=== PATIENT | female | born 1995 | race Caucasian/White ===

== ENCOUNTER 2020-06-12 07:36 | Inpatient (IN) ==
[2020-06-12] MEDS ORDERED: OXYTOCIN 30 UNITS/500 ML BAG IV PRN ×2 (07:40)
[2020-06-12] MEDS: LACTATED RINGER'S 1,000 ML IV PRN ×4 (08:27→21:21)
[2020-06-12] MEDS ORDERED: ONDANSETRON INJ 2 MG/ML 2 ML VIAL IV PRN ×2 (12:21→16:24)
--- NOTE | 2020-06-12 14:04 | Obstetrical Progress Note ---
Date of Service June 12, 2020 Assessment & Plan Admission and Anticipated Discharge Date Admission Date: June 12, 2020 Subjective contractions starting to get uncomfortable but not painful. FHT's category 1 contractions every 3-5 minutes- mild cervix exam- 4cm/80/-2 AROM for thin mec stained fluid continue current labor plan Results & Data ([facility]) Vital Signs (Past 12 Hours) Vital Signs Temp Pulse Resp BP 06/12/20 13:42 98.2 F 94 H 20 142/86 H 06/12/20 12:26 93 H 124/72 06/12/20 11:20 98.4 F 20 06/12/20 11:19 93 H 131/80 06/12/20 10:20 96 H 130/85 06/12/20 08:51 100 H 126/73 06/12/20 08:30 98.2 F 20 06/12/20 07:58 98.2 F 107 H 20 125/81 PG Care Time/CCT Total # of Minutes Spent Total Time Spent with Patient: Total time spent is greater than 50% in coordination of care (as documented) at patient's floor/unit and/or counseling patient: Coding Level of Care Code None
[2020-06-12] MEDS ORDERED: ePHEDrine sulfate 50 MG/ML AMP ONE (14:43)
[2020-06-12] MEDS ORDERED: fentaNYL citrate 100 MCG/2 ML VIAL ONE (14:44)
[2020-06-12] MEDS ORDERED: fentaNYL 2MCG/ML ROPIVACAINE 1.25MG/ML 100 ML BAG EPI ONE (14:44)
[2020-06-12] MEDS ORDERED: BUPIVACAINE 0.25% 30 ML VIAL ONE (14:44)
--- NOTE | 2020-06-12 15:05 | Anesthesiology Consultation ---
Date of Service June 12, 2020 Assessment & Plan (1) Encounter for pre-operative examination: Chart Review Chart Review: Patient NOT seen in Pre Admission Testing and Acceptable Risk for Labor Epidural Consults Requested none ASA ASA2 Proposed Anesthesia Anesthesia Type: Labor Epidural Risk / Benefits Reviewed With: PT / POA / Parent / Guardian, Accepts Plan and Informed Consent Obtained History Height/Weight Height: 5 ft 4 in Weight: 96.162 kg Allergies Allergy/AdvReac Type Severity Reaction Status Date / Time No Known Allergies Allergy Verified 06/11/20 19:46 Medications Home Medications Medication Instructions Recorded Confirmed Last Taken omeprazole 40 mg PO DAILY 06/12/20 06/12/20 06/12/20 06:00 prenat.vits,chay,vmy-kxwc-qjfyq 1 tab PO DAILY 06/12/20 06/12/20 06/11/20 22:00 [ Vitamin] Active Medications Generic Name Dose Route Start Last Admin Trade Name Freq PRN Reason Stop Dose Admin Lactated Ringer's 1,000 mls @ 125 mls/hr 06/12/20 07:40 06/12/20 14:40 Lr IV 06/14/20 07:39 999 mls/hr .Q8H PRN Infusion L&D Protocol Protocol Oxytocin 30 units in 500 mls @ 13 mls/hr 06/12/20 07:40 06/12/20 15:00 Pitocin IV 06/14/20 07:39 0.78 units/hr .Q24H PRN 13 mls/hr Labor Induction/Augmentation Titration Protocol 0.78 UNITS/HR NPO Date Last Intake of Fluids: 07/08/20 Time Last Intake of Fluids: 15:02 Date Last Intake of Solids: 06/12/20 Time Last Intake of Solids: 07:00 Past Medical History Medical History Anxiety GERD (gastroesophageal reflux disease) Hx of varicella Exercise / Class Metabolic Activity II 4-5 Yardwork/Stairs/Walk up hill Negative for chest pain or shortness of breath. Past Family History Family History Grandfather Heart disease Dyslipidemia Myocardial infarction Uncle Dyslipidemia Father Dyslipidemia Grandmother (Paternal) Dyslipidemia Past Surgical History Surgical History [place] teeth removed Past Anesthesia History No Hx of Anesthesia Complications History of PONV No Hx of PONV Social History Smoking Status: Never smoker Hx Alcohol Use: No Hx Substance Use: No substance use type: does not use Review of Systems Patient denies active symptoms of GERD. Patient denies history of abnormal bleeding or bleeding disorder. Patient denies active use of anticoagulants other than low dose aspirin. Patient denies numbness, tingling or weakness in lower extremities. Physical Exam Vital Signs Last Vital Signs Temp 36.8 C 06/12/20 13:42 Pulse 88 06/12/20 15:38 Resp 20 06/12/20 13:42 BP 128/69 06/12/20 14:55 Pulse Ox 100 06/12/20 15:38 Constitutional not obese (gravid uterus) ENMT Mouth: no TMJ abnormality and oral opening not small Thyromental Distance: > or= 3.5 Finger Breadths Mallampati Class: II Neck normal visual inspection; neck extension not limited Respiratory normal respiratory effort Auscultation: lungs clear to auscultation bilaterally Cardiovascular Rate/Rhythm: regular rate and regular rhythm Heart Sounds: no murmur Neurologic moves all extremities Motor/Sensory: no sensory deficit Psychiatric Orientation: alert and oriented x 3 Testing Laboratory Results 06/12/20 07:48
[2020-06-12 15:25] LABS: Hematocrit (blood only) 34.7 % (37-47); Mean Corpuscular Hemoglobin 24.4 pg (25-34); Mean Corpuscular Volume 77.1 fL (80-100); Platelet Count 245 K/uL (130-400); RDW Coefficient of Variation 14.3 % (11.5-14.5); RDW Standard Deviation 40.5 fL (36.4-46.3); White Blood Count 11.63 K/uL (4.8-10.8)
[2020-06-12 15:57] LABS: Mean Corpuscular Hgb Conc 31.7 g/dL (32-36)
[2020-06-12] MEDS ORDERED: NALOXONE HCL 0.4 MG/1 ML VIAL/CARP IV PRN (16:24)
[2020-06-12] MEDS ORDERED: fentaNYL 2MCG/ML ROPIVACAINE 1.25MG/ML 100 ML BAG EPI PRN (16:24)
[2020-06-12] MEDS ORDERED: diphenhydrAMINE 50 MG/ML VIAL IV PRN (16:24)
[2020-06-12] MEDS ORDERED: ePHEDrine sulfate 50 MG/ML AMP IV PRN (16:24)
[2020-06-12] MEDS ORDERED: NALOXONE HCL 1 MG in SODIUM CHLORIDE 0.9% 1000ML 1,000 ML IV PRN (16:24)
[2020-06-13] MEDS ORDERED: LIDOCAINE HCL 1% 20 ML VIAL ONE ×2 (00:16→00:21)
[2020-06-13] MEDS ORDERED: SUPERCREAM 0.870% 15 GM JAR EXT PRN (01:17)
[2020-06-13] MEDS ORDERED: DIPHTHERIA/TETANUS/PERTUSSIS 0.5 ML SYR/VIAL IM ONE (01:17)
[2020-06-13] MEDS ORDERED: OXYTOCIN 30 UNITS/500 ML BAG IV PRN (01:17)
[2020-06-13] MEDS ORDERED: ACETAMINOPHEN 325 MG TAB PO PRN (01:17)
[2020-06-13] MEDS ORDERED: HYDROCORTISONE ACETATE 25 MG SUPP PR PRN (01:17)
[2020-06-13] MEDS ORDERED: oxyCODONE/ACETAMINOPHEN 5mg/325mg TAB PO PRN (01:17)
[2020-06-13] MEDS ORDERED: BENZOCAINE 20% AER SPR 82.5 GM CAN EXT PRN (01:17)
[2020-06-13] MEDS ORDERED: bisacodyL 10 MG SUPP PR PRN (01:17)
--- NOTE | 2020-06-13 01:47 | Delivery Summary ---
Vaginal Delivery Summary Date of Service June 13, 2020 Patient is a 25-year-old G1, P0 white female who presented for induction of labo r because of postterm . She had a cervical balloon successively placed on the evening of 06/11. On arrival in the morning of 06/12, the cervical balloon was in the vagina and was easily removed. Pitocin augmentation of labor was begun. Membranes were ruptured for thin meconium stained fluid. She received effective epidural analgesia and progressed to full dilation. Over 20 minutes of pushing, she brought the vertex to . With gentle pushing the head was delivered. The rest of the infant delivered easily and was placed on the mother's abdomen for further attention and drying. The infant was vigorous and crying. The cord was somewhat short and was cut and clamped prior to 1 minute of life to allow the baby to be better positioned on the mother's chest. The placenta was expressed intact with a three-vessel cord. She was noted to have a high vaginal tear and third-degree extension of her perineal laceration. Rectal exam after the repair was performed revealed a stitch through the rectum. The repair was taken down completely and re-done. At this point rectal exam revealed no suture in the rectum. 3-0 chromic and 2-0 chromic were used to repair the laceration in the usual fashion. Estimated blood loss was 400 cc. 1% lidocaine was used for additional local analgesia to complete the repair. Mother and were doing well after delivery. [facility] [place] Delivery Charge Vaginal Delivery Codes: 96204 global code for the antepartum, delivery, and post-
[2020-06-13] MEDS: IBUPROFEN 600 MG TAB PO PRN ×4 (03:28→19:56)
--- NOTE | 2020-06-13 06:35 | Obstetrical Progress Note ---
Date of Service <Nichole Patterson DO - Last Filed: 06/13/20 07:36> June 13, 2020 Assessment & Plan <Nichole Patterson DO - Last Filed: 06/13/20 07:36> (1) state: - PNL: Rh pos, RI, GBS neg, COVID neg - Feels well today. Eating well, voiding well, ambulating well. - Pain well controlled with ibuprofen 600mg Q4H PRN - Routine care -- OOB, ambulation, diet progression as tolerated - After discharge will have 6 week follow-up with Dr. Villanueva. - Will plan for d/c home tomorrow. Subjective <Nichole Patterson DO - Last Filed: 06/13/20 07:36> Evangelina Bowser is a 25 y/o female who is PPD #1 (~7 hours ) following spontaneous vaginal delivery after IOL at 40 and 2/7 weeks. She reports feeling well overall this morning. Minimal abdominal cramping and 1-2/10 pain well managed on analgesics. Voiding without dysuria. Tolerating meals since delivery without nausea or vomiting. Patient has been able to ambulate some. She is passing gas. Has persistent lochia with some improvement this morning. Currently . Review of Systems Denies fever or chills. Denies shortness of breath or cough. Denies chest pain. Denies breast pain. Denies dysuria. Denies leg pain or leg swelling. Denies headache or changes in vision. Physical Exam <Nichole Patterson DO - Last Filed: 06/13/20 07:36> General: Alert, oriented. No acute distress. Cardiac: Regular rate and rhythm. No murmurs. Respiratory: Clear to auscultation bilaterally a/p, no wheezes/rales/rhonchi. No increased work of breathing. Symmetrical chest rise. No respiratory distress. Abdomen: Soft, nontender, nondistended. Bowel sounds present. Uterus: Uterine fundus firm, palpable 1 cm below umbilicus on right. Lower Extremities: No lower extremity edema or swelling. No deep calf pain. Roberto's negative bilaterally. Results & Data ([facility]) <Nichole Patterson DO - Last Filed: 06/13/20 07:36> Vital Signs (Past 12 Hours) Vital Signs Temp Pulse Pulse Resp BP BP Pulse Ox 06/13/20 03:40 36.8 C 110 H 16 131/83 97 06/13/20 03:23 102 H 127/67 06/13/20 03:15 18 06/13/20 03:13 112 H 121/66 06/13/20 03:03 88 117/67 06/13/20 02:53 94 H 133/63 06/13/20 02:45 18 06/13/20 02:43 93 H 132/61 06/13/20 02:33 120 H 138/83 06/13/20 02:23 93 H 131/70 06/13/20 02:15 18 06/13/20 02:13 85 140/74 06/13/20 02:03 93 H 140/65 06/13/20 02:00 18 06/13/20 01:53 100 H 150/63 H 06/13/20 01:45 18 06/13/20 01:44 98 H 168/70 H 06/13/20 01:33 107 H 157/70 H 06/13/20 01:30 18 06/13/20 01:24 96 H 148/73 H 06/13/20 01:15 37.0 C 18 06/13/20 01:14 112 H 145/99 H 06/13/20 01:00 18 06/13/20 00:50 98 H 133/72 06/13/20 00:35 101 H 142/65 H 06/13/20 00:30 18 06/13/20 00:20 101 H 141/60 H 06/13/20 00:05 107 H 149/67 H 06/13/20 00:00 37.1 C 18 06/12/20 23:50 107 H 166/72 H 06/12/20 23:43 108 H 100 06/12/20 23:42 104 H 91 06/12/20 23:38 109 H 97 06/12/20 23:35 108 H 166/89 H 06/12/20 23:33 102 H 97 06/12/20 23:28 97 H 97 06/12/20 23:23 145 H 97 06/12/20 23:22 126 H 174/91 H 06/12/20 23:18 111 H 97 06/12/20 23:13 114 H 99 06/12/20 23:08 103 H 98 06/12/20 23:06 111 H 140/83 06/12/20 23:03 104 H 98 06/12/20 23:00 18 06/12/20 22:58 111 H 97 06/12/20 22:53 111 H 97 06/12/20 22:51 109 H 154/84 H 06/12/20 22:48 112 H 96 06/12/20 22:43 112 H 97 06/12/20 22:38 113 H 96 06/12/20 22:36 115 H 152/91 H 06/12/20 22:33 121 H 97 06/12/20 22:30 36.8 C 18 06/12/20 22:28 111 H 96 06/12/20 22:23 128 H 98 06/12/20 22:21 125 H 140/87 06/12/20 22:18 133 H 97 06/12/20 22:16 18 06/12/20 22:13 109 H 98 06/12/20 22:08 114 H 97 06/12/20 22:05 107 H 126/64 06/12/20 22:03 107 H 97 06/12/20 21:58 105 H 96 06/12/20 21:53 120 H 97 06/12/20 21:50 115 H 129/64 06/12/20 21:48 124 H 99 06/12/20 21:43 100 H 97 06/12/20 21:38 105 H 97 06/12/20 21:36 102 H 130/66 06/12/20 21:33 94 H 97 06/12/20 21:30 18 06/12/20 21:28 95 H 95 06/12/20 21:23 106 H 97 06/12/20 21:21 112 H 139/64 06/12/20 21:18 112 H 98 06/12/20 21:13 123 H 99 06/12/20 21:08 86 96 06/12/20 21:07 88 122/68 06/12/20 21:03 88 96 06/12/20 21:00 18 06/12/20 20:58 90 96 06/12/20 20:53 84 97 06/12/20 20:50 86 132/67 06/12/20 20:48 80 96 06/12/20 20:43 85 96 06/12/20 20:38 94 H 99 06/12/20 20:36 93 H 133/78 06/12/20 20:33 107 H 99 06/12/20 20:30 37.0 C 18 06/12/20 20:28 85 96 06/12/20 20:23 77 96 06/12/20 20:21 78 135/79 06/12/20 20:18 82 96 06/12/20 20:13 103 H 97 06/12/20 20:08 76 97 06/12/20 20:05 80 126/67 06/12/20 20:03 83 95 06/12/20 20:00 18 06/12/20 19:58 85 97 06/12/20 19:53 82 96 06/12/20 19:50 76 18 127/64 06/12/20 19:48 79 96 06/12/20 19:43 83 97 06/12/20 19:38 84 97 06/12/20 19:36 88 135/75 06/12/20 19:33 96 H 98 06/12/20 19:30 18 06/12/20 19:28 86 97 06/12/20 19:23 96 H 97 06/12/20 19:22 85 130/70 06/12/20 19:18 89 98 06/12/20 19:15 36.4 C L 18 06/12/20 19:13 91 H 95 06/12/20 19:08 93 H 98 06/12/20 19:05 93 H 137/70 06/12/20 19:03 96 H 98 06/12/20 18:58 90 98 06/12/20 18:53 91 H 98 06/12/20 18:51 89 125/64 06/12/20 18:48 84 97 06/12/20 18:43 86 100 06/12/20 18:38 88 99 06/12/20 18:36 93 H 122/66 06/12/20 18:33 90 99 Laboratory Results 06/12/20 06/12/20 06/12/20 Range/Units 07:55 07:55 07:48 WBC 11.63 H (4.8-10.8) K/uL RBC 4.50 (4.2-5.4) M/uL Hgb 11.0 L (12.0-16.0) g/dL Hct 34.7 L (37-47) % MCV 77.1 L (80-100) fL MCH 24.4 L (25-34) pg MCHC 31.7 L (32-36) g/dL RDW Std Deviation 40.5 (36.4-46.3) fL RDW Coeff of Akanksha 14.3 (11.5-14.5) % Plt Count 245 (130-400) K/uL MPV 11.0 H (7.4-10.4) fL COVID-19 Eval [facility] SARS-CoV-2, RNA, NAAT NEGATIVE (NEGATIVE) <Ally Gamboa MD, FACOG - Last Filed: 06/13/20 08:06> Co-Signing Physician Notes Resident Physician Supervision Note: I was present with Dr. Patterson during the history and exam. I discussed the case with the resident and agree with the findings and plan as documented in the note. Any exceptions or clarifications are listed here: [None] Documented By: Ally Gamboa MD, FACOG Resident Activity Tracking <Nichole Patterson, - Last Filed: 06/13/20 07:36> Resident Involvement: Resident Care Provided Care Provided: OB Delivery
[2020-06-13] MEDS: PRENATAL VITAMIN 1 TAB PO SCH (08:39)
[2020-06-13] MEDS: DOCUSATE SODIUM 100 MG CAP PO SCH ×2 (08:39→19:55)
--- NOTE | 2020-06-13 10:47 | Anesthesia Procedure Note ---
Date of Service June 13, 2020 Anesthesia Post Epidural Note Vital Signs Vital Signs: Temp Pulse Resp BP Pulse Ox 97.7 F 96 H 16 128/83 97 06/13/20 08:00 06/13/20 08:00 06/13/20 08:00 06/13/20 08:00 06/13/20 03:40 Pain Intensity Left Lower Abdomen: Pain Intensity: 0 Notes Mental Status: alert / awake / arousable and participated in evaluation Nausea / Vomiting: adequately controlled Pain: adequately controlled Airway Patency, RR, SpO2: stable & adequate BP & HR: stable & adequate Hydration State: stable & adequate Neuraxial Anesthesia: was administered and sensory block is resolving Anesthetic Complications: no major complications apparent and Pt Satisfied with anesthetic care Epidural: Removed without complications and With tip intact
[2020-06-14] MEDS: IBUPROFEN 600 MG TAB PO PRN ×2 (03:21→07:53)
[2020-06-14 06:40] LABS: Hematocrit (blood only) 25.1 % (37-47); Hemoglobin 8.1 g/dL (12.0-16.0); Mean Corpuscular Hemoglobin 25.2 pg (25-34); Mean Corpuscular Hgb Conc 32.3 g/dL (32-36); Mean Corpuscular Volume 78.2 fL (80-100); Platelet Count 179 K/uL (130-400); RDW Coefficient of Variation 14.8 % (11.5-14.5); RDW Standard Deviation 42.3 fL (36.4-46.3); Red Blood Count 3.21 M/uL (4.2-5.4)
[2020-06-14] MEDS: PRENATAL VITAMIN 1 TAB PO SCH (07:52)
[2020-06-14] MEDS: DOCUSATE SODIUM 100 MG CAP PO SCH (07:52)
--- NOTE | 2020-06-14 08:10 | Obstetrical Progress Note ---
Date of Service June 14, 2020 Assessment & Plan (1) Supervision of normal intrauterine in primigravida: (2) state: - doing well - not sx's of anemia - desires d/c - instructions given - start Fe - f/u in 6 weeks for pp check Subjective Ambulation: ambulating normally (not lightheaded) Physical Exam Constitutional WD/WN, vitals as above Gastrointestinal (Abdomen) Fundus firm below umbilicus Musculoskeletal No deep calf tenderness Results & Data ([facility]) Vital Signs (Past 12 Hours) Vital Signs Temp Pulse Resp BP Pulse Ox 06/13/20 23:45 97.9 F 86 16 114/76 98
[2020-06-14] MEDS ORDERED: bisacodyL 5 MG TABEC PO SCH (20:00)
== END 2020-06-14 10:48 | disposition home or self-care (01) | DRG 768 ==
LOC: 4S1 07:36 → 4S2 06-13 03:51

== ENCOUNTER 2022-03-26 14:33 | Observation (INO) ==
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
[2022-03-26 15:48] LABS: Hematocrit (blood only) 36.8 % (34.1-44.9); Hemoglobin 12.6 g/dl (12.0-16.0); Mean Corpuscular Hemoglobin 29.4 pg (25.0-34.0); Mean Corpuscular Hgb Conc 34.2 g/dL (32.0-36.0); Mean Corpuscular Volume 85.8 fL (80.0-100.0); Mean Platelet Volume 10.6 fL (9.4-12.3); Platelet Count 180 K/uL (130-400); RDW Coefficient of Variation 12.6 % (11.5-14.5); Red Blood Count 4.29 M/uL (3.93-5.22); White Blood Count 12.44 K/ul (4.8-10.8)
[2022-03-26] MEDS ORDERED: LACTATED RINGER'S 1,000 ML IV ONE (16:31)
[2022-03-26 16:39] LABS: Fibrinogen 429 mg/dl (184-400); INR 0.9 (0.9-1.1); Partial Thromboplastin Time 27.3 Seconds (21.0-31.0)
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
[2022-03-26] MEDS ORDERED: LACTATED RINGER'S 1,000 ML IV SCH (18:30)
[2022-03-26] MEDS: LACTATED RINGER'S 1,000 ML IV SCH (18:35)
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
[2022-03-26] MEDS ORDERED: ACETAMINOPHEN 500 MG TAB PO PRN (19:02)
[2022-03-26] MEDS ORDERED: ONDANSETRON INJ 2 MG/ML 2 ML VIAL IV PRN (19:02)
[2022-03-26] MEDS ORDERED: CALCIUM CARBONATE 500 MG CHEWABLE TAB PO PRN (19:02)
[2022-03-27] MEDS: LACTATED RINGER'S 1,000 ML IV SCH (01:36)
[2022-03-27 04:32] VITALS: TEMP 98.2
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
[2022-03-27 07:40] VITALS: BP 128/63; PULSE 75
== END 2022-03-27 07:50 | disposition home or self-care (01) ==
LOC: OPB 14:33 → 4S1 14:33 → EDCLIBED 20:10 → 4S1 20:10 → OPB 03-27 07:50 → UNDODEPCLI 03-31 16:26

== ENCOUNTER 2022-04-24 09:41 | Inpatient (IN) ==
[2022-04-24] MEDS ORDERED: LIDOCAINE 1% LOCAL 20 ML VIAL INFIL PRN (10:37)
[2022-04-24] MEDS ORDERED: OXYTOCIN 30 UNITS/500 ML BAG IV PRN ×2 (10:37)
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
[2022-04-24 10:56] LABS: Mean Corpuscular Hemoglobin 29.4 pg (25.0-34.0); Mean Corpuscular Hgb Conc 34.2 g/dL (32.0-36.0); Mean Platelet Volume 10.4 fL (9.4-12.3); Platelet Count 182 K/uL (130-400); RDW Coefficient of Variation 12.3 % (11.5-14.5); RDW Standard Deviation 38.6 fL (36.4-46.3); Red Blood Count 4.42 M/uL (3.93-5.22); White Blood Count 9.95 K/ul (4.8-10.8)
[2022-04-24] MEDS: LACTATED RINGER'S 1,000 ML IV PRN ×2 (13:00→15:12)
[2022-04-24] MEDS ORDERED: fentaNYL citrate 100 MCG/2 ML VIAL ONE (13:05)
[2022-04-24] MEDS ORDERED: BUPIVACAINE 0.25% 30 ML VIAL ONE (13:05)
[2022-04-24] MEDS ORDERED: SODIUM CHLORIDE 0.9% INJ 10 ML VIAL ONE (13:05)
[2022-04-24] MEDS ORDERED: ePHEDrine sulfate 50 MG/ML AMP ONE (13:05)
[2022-04-24] MEDS ORDERED: fentaNYL 2MCG/ML ROPIVACAINE 1.25MG/ML 100 ML BAG EPI ONE (13:06)
[2022-04-24] MEDS ORDERED: LIDOCAINE 2%/EPINEPHRINE 1:200,000 20 ML SDV ONE (13:06)
--- NOTE | 2022-04-24 13:32 | Anesthesiology Consultation ---
Date of Service April 24, 2022 Assessment & Plan (1) Encounter for pre-operative examination: Chart Review Chart Review: Acceptable Risk for Labor Epidural Consults Requested none ASA ASA2 Proposed Anesthesia Anesthesia Type: Labor Epidural Risk / Benefits Reviewed With: PT / POA / Parent / Guardian, Accepts Plan and Informed Consent Obtained History Height/Weight Height: 5 ft 4 in Weight: 99.79 kg Allergies Allergy/AdvReac Type Severity Reaction Status Date / Time No Known Allergies Allergy Verified 04/19/22 13:49 Medications Home Medications Medication Instructions Recorded Confirmed Last Taken prenat.vits,chay,[id number] 1 tab PO DAILY 06/12/20 04/24/22 04/23/22 07:00 omeprazole 20 mg capsule,delayed 20 mg PO DAILY 02/16/22 04/24/22 04/23/22 07:00 release Active Medications Generic Name Dose Route Start Last Admin Trade Name Freq PRN Reason Stop Dose Admin Lactated Ringer's 1,000 mls @ 125 mls/hr 04/24/22 10:37 04/24/22 13:00 Lr IV 04/26/22 10:36 999 mls/hr .Q8H PRN Administration L&D Protocol Protocol Past Medical History Medical History Anxiety GERD (gastroesophageal reflux disease) Hx of varicella Exercise / Class Metabolic Activity II 4-5 Yardwork/Stairs/Walk up hill Past Family History Family History Grandfather (Maternal) Heart disease Dyslipidemia Myocardial infarction Diabetes Uncle Dyslipidemia Father Dyslipidemia Grandmother (Paternal) Dyslipidemia Mother Diabetes Denies family history of Ovarian cancer Breast cancer Lung cancer Past Surgical History Surgical History [place] teeth removed Past Anesthesia History No Hx of Anesthesia Complications and No Family Hx of Anesthesia Complications History of PONV No Hx of PONV and No Hx of Motion Sickness Social History Smoking Status: Never smoker Hx Alcohol Use: No Hx Substance Use: No substance use type: does not use Physical Exam Vital Signs Last Vital Signs Temp 98.4 F 04/24/22 09:59 Pulse 100 H 04/24/22 09:57 Resp 20 04/24/22 09:59 BP 126/77 04/24/22 09:57 ENMT Mouth: no dentition abnormality Thyromental Distance: > or= 3.5 Finger Breadths Mallampati Class: II Neck normal visual inspection Respiratory normal respiratory effort Auscultation: lungs clear to auscultation bilaterally Cardiovascular Rate/Rhythm: regular rate and regular rhythm Testing Laboratory Results 04/24/22 10:45
[2022-04-24] MEDS ORDERED: NALOXONE HCL 0.4 MG/1 ML VIAL/CARP IV PRN (13:48)
[2022-04-24] MEDS ORDERED: fentaNYL 2MCG/ML ROPIVACAINE 1.25MG/ML 100 ML BAG EPI PRN (13:48)
[2022-04-24] MEDS ORDERED: ONDANSETRON INJ 2 MG/ML 2 ML VIAL IV PRN (13:48)
[2022-04-24] MEDS ORDERED: NALOXONE HCL 1 MG in SODIUM CHLORIDE 0.9% 1000ML 1,000 ML IV PRN (13:48)
[2022-04-24] MEDS ORDERED: NALBUPHINE HCL INJ 10 MG/ML AMP IV PRN (13:48)
[2022-04-24] MEDS ORDERED: ePHEDrine sulfate 50 MG/ML AMP IV PRN (13:48)
[2022-04-24] MEDS ORDERED: diphenhydrAMINE 50 MG/ML VIAL IV PRN (13:48)
--- NOTE | 2022-04-24 17:15 | Delivery Summary ---
Vaginal Delivery Summary Date of Service April 24, 2022 Vaginal Delivery Summary DIAGNOSES: 1. Peng intrauterine at 39w6d gestation. 2. Spontaneous onset of labor. 3. Group B Streptococcus Neg. PROCEDURE: Spontaneous vaginal delivery and repair of second degree laceration. SURGEON: Rose Velazquez MD. CLIENT SUPPORT ASSOCIATE: None. ESTIMATED BLOOD LOSS: 350 mL. COMPLICATIONS: None. PLACENTA: Spontaneous and intact with a 3-vessel cord. DISPOSITION: Stable to labor and delivery. DESCRIPTION: The patient pushed well and brought the head to in DOA position. The infant's head was allowed to deliver with contraction force and no further active pushing, with the perineum protected during this time. There was no nuchal cord. The left shoulder was anterior. The shoulders and body delivered without any difficulty, and the was placed on the maternal abdomen. It was vigorous and moving all extremities, and making respiratory efforts. The cord was doubly clamped by the MD and then cut by the FOB. The placenta delivered spontaneously and was noted to be intact and with a 3VC. The cervix, vagina and perineum were examined and were found to have a second-degree laceration which was repaired using vicryl suture in the usual manner, including a crown stitch to rebuild the perineum. The fundus was firm and lochia minimal immediately after delivery. [facility] Vaginal Delivery Charge Vaginal Delivery Codes: 69739 global code for the antepartum, delivery, and post-
[2022-04-24] MEDS ORDERED: DIPHTHERIA/TETANUS/PERTUSSIS 0.5 ML SYR/VIAL IM ONE (17:24)
[2022-04-24] MEDS ORDERED: oxyCODONE/ACETAMINOPHEN 5mg/325mg TAB PO PRN (17:24)
[2022-04-24] MEDS ORDERED: HYDROCORTISONE ACETATE 25 MG SUPP PR PRN (17:24)
[2022-04-24] MEDS ORDERED: bisacodyL 10 MG SUPP PR PRN (17:24)
[2022-04-24] MEDS ORDERED: ACETAMINOPHEN 325 MG TAB PO PRN (17:24)
[2022-04-24] MEDS ORDERED: BENZOCAINE 20% AER SPR 82.5 GM CAN EXT PRN (17:24)
--- NOTE | 2022-04-24 20:22 | Anesthesia Procedure Note ---
Date of Service April 24, 2022 Anesthesia Post Epidural Note Vital Signs Vital Signs: Temp Pulse Resp BP Pulse Ox 36.8 C 109 H 20 100/57 L 98 04/24/22 16:01 04/24/22 19:34 04/24/22 18:34 04/24/22 19:34 04/24/22 16:47 Notes Mental Status: alert / awake / arousable and participated in evaluation Nausea / Vomiting: adequately controlled Pain: adequately controlled Airway Patency, RR, SpO2: stable & adequate BP & HR: stable & adequate Hydration State: stable & adequate Neuraxial Anesthesia: was administered and sensory block resolved Anesthetic Complications: no major complications apparent and Pt Satisfied with anesthetic care Epidural: Removed without complications and With tip intact
[2022-04-24] MEDS: DOCUSATE SODIUM 100 MG CAP PO SCH (21:18)
[2022-04-24] MEDS: IBUPROFEN 600 MG TAB PO PRN (23:00)
[2022-04-25] MEDS: IBUPROFEN 600 MG TAB PO PRN ×3 (03:43→12:30)
--- NOTE | 2022-04-25 04:57 | Obstetrical Progress Note ---
Date of Service April 25, 2022 Assessment & Plan (1) Normal vaginal delivery: Plan - Overall, feeling well and eating well today - Infant feeding going well without concern - Urinating and passing gas appropriately, no bowel movement - Ambulating well - Pain controlled w/ Ibuprofen 600 mg - Routine PP care progressing well - Looking forward to going home - Recommend 6 week PP follow up with Dr. Velazquez - Will anticipate discharge with at 24 hours Admission and Anticipated Discharge Date Admission Date: April 24, 2022 Supervising Physician Co-Signing Physician Notes Resident Physician Supervision Note: I interviewed and examined the patient. Discussed with Dr. Perez and agree with findings and plan as documented in the note. Any exceptions or clarifications are listed here: [ ] Documented By: Rose Velazquez MD, FACOG Subjective Today 04/25: Patient is a 27 y/o female who is PPD #1 following delivery at 39w6d. She reports that overall she is feeling well and is anticipating getting home and introducing her son to her 2 year old. She is voiding and passing gas regularly. Lochia is diminishing. She is eating a regular diet without difficulty. Her pain is well controlled. - Ambulation: well, without difficulty - Voiding/Garcia: voiding well - Gas/Stool: passing gas, no bowel movement - Diet: consuming regular diet, w/o nausea or vomiting - Lochia: light amount, diminishing since delivery - Infant Feeding Type: Breast & Bottle feeding with formula supplementation, no breast pain - Pain Level: 2/10, controlled with Ibuprofen 600 mg Review of Systems - Denies fever, chills, sweats - Denies shortness of breath, difficulty breathing, chest pain, palpitations, chest pressure. - Denies breast pain. - Denies dysuria. - Denies headache or changes in vision. Physical Exam Physical Exam: General: Alert, oriented. No acute distress. Cardiac: RRR, normal S1/S2, no murmurs/rubs/gallops. Respiratory: Non-labored, CTAB, no wheezes/rales/rhonchi. Symmetric chest rise. Abdomen: Soft, nontender, nondistended. Bowel sounds present. Uterus: Uterine fundus firm, palpable 1cm below umbilicus. Lower Extremities: No lower extremity edema or swelling. No deep calf pain. Roberto's negative bilaterally. Results & Data ([facility]) Vital Signs (Past 12 Hours) Vital Signs Temp Pulse Pulse Resp BP BP Pulse Ox 04/25/22 03:45 36.7 C 82 18 101/69 97 04/24/22 23:45 36.9 C 72 16 110/72 99 04/24/22 20:30 36.8 C 98 H 18 109/73 96 04/24/22 18:34 20 04/24/22 18:04 20 04/24/22 17:49 20 04/24/22 17:19 20 04/24/22 17:34 20 04/24/22 17:04 20 04/24/22 19:34 109 H 04/24/22 19:34 100/57 L 04/24/22 19:19 102 H 04/24/22 19:19 97/54 L 04/24/22 19:04 105 H 04/24/22 19:04 102/61 04/24/22 18:49 100 H 04/24/22 18:49 103/57 L 04/24/22 18:34 107 H 04/24/22 18:34 104/55 L 04/24/22 18:19 97 H 04/24/22 18:19 110/59 L 04/24/22 18:04 112 H 04/24/22 18:04 109/68 04/24/22 17:49 90 04/24/22 17:49 107/58 L 04/24/22 17:43 93 H 04/24/22 17:43 118/56 L 04/24/22 17:19 106 H 04/24/22 17:19 117/56 L 04/24/22 17:04 101 H 04/24/22 17:04 120/65 04/24/22 16:53 123 H 04/24/22 16:53 120/73 O2 Del Method 04/25/22 03:45 Room Air 04/24/22 23:45 Room Air 04/24/22 20:30 Room Air 04/24/22 18:34 04/24/22 18:04 04/24/22 17:49 04/24/22 17:19 04/24/22 17:34 04/24/22 17:04 04/24/22 19:34 04/24/22 19:34 04/24/22 19:19 04/24/22 19:19 04/24/22 19:04 04/24/22 19:04 04/24/22 18:49 04/24/22 18:49 04/24/22 18:34 04/24/22 18:34 04/24/22 18:19 04/24/22 18:19 04/24/22 18:04 04/24/22 18:04 04/24/22 17:49 04/24/22 17:49 04/24/22 17:43 04/24/22 17:43 04/24/22 17:19 04/24/22 17:19 04/24/22 17:04 04/24/22 17:04 04/24/22 16:53 04/24/22 16:53 Resident Activity Tracking Resident Involvement: Resident Care Provided Care Provided: OB Delivery
[2022-04-25 06:52] LABS: Hematocrit (blood only) 32.9 % (34.1-44.9); Mean Corpuscular Hgb Conc 33.4 g/dL (32.0-36.0); Mean Corpuscular Volume 86.8 fL (80.0-100.0); Mean Platelet Volume 10.2 fL (9.4-12.3); Platelet Count 166 K/uL (130-400); RDW Coefficient of Variation 12.3 % (11.5-14.5); RDW Standard Deviation 39.2 fL (36.4-46.3); Red Blood Count 3.79 M/uL (3.93-5.22); White Blood Count 13.36 K/ul (4.8-10.8)
[2022-04-25] MEDS: DOCUSATE SODIUM 100 MG CAP PO SCH (07:36)
[2022-04-25] MEDS ORDERED: PRENATAL VITAMIN 1 TAB PO SCH (08:00)
[2022-04-25] MEDS ORDERED: bisacodyL 5 MG TABEC PO SCH (20:00)
== END 2022-04-25 19:40 | disposition home or self-care (01) | DRG 807 ==
LOC: OPB 09:41 → 4S1 09:43 → 4E2 20:56

== ENCOUNTER 2024-06-24 07:13 | Inpatient (IN) ==
[2024-06-24] MEDS ORDERED: OXYTOCIN 30 UNITS/NSS 30 UNITS/500 ML BAG IV PRN ×2 (08:07→14:59)
[2024-06-24] MEDS ORDERED: LIDOCAINE 1% LOCAL 20 ML VIAL INFIL PRN (08:07)
[2024-06-24] MEDS: LACTATED RINGER'S 1,000 ML IV SCH ×2 (08:17→12:05)
[2024-06-24] MEDS ORDERED: ONDANSETRON INJ 2 MG/ML 2 ML VIAL IV PRN (08:51)
[2024-06-24] MEDS ORDERED: NALBUPHINE HCL INJ 10 MG/ML AMP IV PRN (08:51)
[2024-06-24] MEDS ORDERED: NALOXONE HCL 0.4 MG/1 ML VIAL/CARP IV PRN (08:51)
[2024-06-24] MEDS ORDERED: diphenhydrAMINE 50 MG/ML VIAL IV PRN (08:51)
[2024-06-24] MEDS ORDERED: PROMETHAZINE 6.25 MG/50.25 ML BAG IV PRN (08:51)
[2024-06-24] MEDS ORDERED: fentANYL 2 MCG/ML BUPIVacaine 0.125%-NSS 100ML BAG EPI PRN (08:51)
[2024-06-24] MEDS ORDERED: SODIUM CHLORIDE 0.9% PF INJ 10 ML VIAL EPI PRN (08:51)
[2024-06-24] MEDS ORDERED: BUPIVACAINE 0.25% PF 30 ML VIAL EPI PRN (08:51)
[2024-06-24] MEDS ORDERED: ROPIVACAINE 0.5% PF 5 MG/ML 20 ML VIAL EPI PRN (08:51)
[2024-06-24] MEDS ORDERED: fentaNYL citrate PF 100 MCG/2 ML VIAL EPI PRN (08:51)
[2024-06-24] MEDS ORDERED: NALOXONE HCL 1 MG in SODIUM CHLORIDE 0.9% 1,000 ML IV PRN (08:51)
[2024-06-24] MEDS ORDERED: LIDOCAINE 2% MPF LOCAL 5 ML VIAL EPI PRN (08:51)
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
[2024-06-24 08:56] LABS: Hematocrit (blood only) 39.4 % (37.0-47.0); Hemoglobin 13.4 g/dl (12.0-16.0); Mean Corpuscular Hemoglobin 28.4 pg (25.0-34.0); Mean Corpuscular Volume 83.5 fL (80.0-100.0); Mean Platelet Volume 11.4 fL (9.4-12.4); Platelet Count 171 K/uL (130-400); RDW Coefficient of Variation 13.3 % (11.5-14.5); Red Blood Count 4.72 M/uL (4.20-5.40); White Blood Count 12.09 K/ul (4.8-10.8)
[2024-06-24] MEDS: fentANYL 2 MCG/ML BUPIVacaine 0.125%-NSS 100ML BAG ONE (09:09)
[2024-06-24] MEDS: SODIUM CHLORIDE 0.9% PF INJ 10 ML VIAL ONE (09:13)
[2024-06-24] MEDS: LIDOCAINE 2%/EPINEPHRINE 1:200,000 20 ML PF ONE (09:13)
[2024-06-24] MEDS: BUPIVACAINE 0.25% PF 30 ML VIAL ONE (09:13)
[2024-06-24] MEDS: ePHEDrine sulfate 50 MG/ML AMP IV PRN (09:52)
[2024-06-24] MEDS: ePHEDrine sulfate 50 MG/ML AMP ONE (09:54)
[2024-06-24] MEDS: fentaNYL citrate PF 100 MCG/2 ML VIAL ONE (09:54)
[2024-06-24] MEDS: SODIUM CHLORIDE 0.9% PF INJ 10 ML VIAL EPI STA (09:55)
[2024-06-24] MEDS: LIDOCAINE 2%/EPINEPHRINE 1:200,000 20 ML PF EPI STA (09:55)
[2024-06-24] MEDS: BUPIVACAINE 0.25% PF 30 ML VIAL EPI STA (09:55)
[2024-06-24] MEDS: fentaNYL citrate PF 100 MCG/2 ML VIAL EPI STA (09:55)
--- NOTE | 2024-06-24 14:52 | Delivery Summary ---
Vaginal Delivery Summary Date of Service June 24, 2024 Vaginal Delivery Summary and 2nd Degree LAC Spontaneous vaginal delivery the patient arrived in active labor is her third baby requested epidural artificial rupture of membranes and then she progressed to fully dilated after pushing for a short period of time baby delivered in occiput anterior position there was thin meconium there was no nuchal cord initially I could not get the shoulder but simply putting maternal head down flat on the bed was then able to release the shoulder with gentle traction delivered the side of the symphysis pubis then baby followed easily easy delivery no excessive force live vigorous male Cord clamped and cut cord blood obtained placenta removed with traction IV Pitocin started uterine tone good second-degree tear repaired with 3-0 Vicryl sponge and instrument counts correct rectal exam negative for defects or sutures QBL equals [id number] Note bleeding was immediately after delivery and soon controlled after care with IV Pitocin [facility] Vaginal Delivery Charge Delivery Type Details: and 2nd Degree LAC
[2024-06-24] MEDS: IBUPROFEN 600 MG TAB PO ONE (14:58)
[2024-06-24] MEDS ORDERED: BENZOCAINE 20% SPRY 85 APPLN/85 GM CAN EXT PRN (14:59)
[2024-06-24] MEDS ORDERED: ACETAMINOPHEN 325 MG TAB PO PRN (14:59)
[2024-06-24] MEDS ORDERED: bisacodyL 10 MG SUPP PR PRN (14:59)
[2024-06-24] MEDS ORDERED: HYDROCORTISONE ACETATE 25 MG SUPP PR PRN (14:59)
--- NOTE | 2024-06-24 15:26 | Anesthesia Procedure Note ---
Date of Service June 24, 2024 Anesthesia Post Epidural Note Vital Signs Vital Signs: Temp Pulse Resp BP Pulse Ox 36.6 C 110 H 18 111/58 L 98 06/24/24 11:00 06/24/24 15:15 06/24/24 11:00 06/24/24 15:15 06/24/24 14:54 Pain Intensity Lower Medial Abdomen: Pain Intensity: 0 Notes Mental Status: alert / awake / arousable Nausea / Vomiting: adequately controlled Pain: adequately controlled Airway Patency, RR, SpO2: stable & adequate BP & HR: stable & adequate Hydration State: stable & adequate Neuraxial Anesthesia: was administered and sensory block is resolving Anesthetic Complications: no major complications apparent and Pt Satisfied with anesthetic care Epidural: Removed without complications and With tip intact
[2024-06-24] MEDS ORDERED: SODIUM CHLORIDE 0.9% 50 ML IV PRN (18:08)
[2024-06-24] MEDS ORDERED: SODIUM CHLORIDE 0.9% 100 ML IV PRN (18:08)
[2024-06-24] MEDS: IBUPROFEN 600 MG TAB PO PRN (20:03)
[2024-06-24] MEDS: DOCUSATE SODIUM 100 MG CAP PO SCH (21:31)
[2024-06-24] MEDS: DIPHTHER/TETAN/PERTUS Vaccine (Tdap, Adol/Adult) 0.5mL IM ONE (21:41)
[2024-06-25 00:36] VITALS: O2SAT 98
[2024-06-25 06:26] LABS: Hematocrit (blood only) 34.2 % (37.0-47.0); Hemoglobin 11.3 g/dl (12.0-16.0); Mean Corpuscular Volume 84.7 fL (80.0-100.0); Mean Platelet Volume 10.8 fL (9.4-12.4); Platelet Count 155 K/uL (130-400); RDW Coefficient of Variation 13.5 % (11.5-14.5); RDW Standard Deviation 42.1 fL (36.4-46.3); Red Blood Count 4.04 M/uL (4.20-5.40); White Blood Count 14.13 K/ul (4.8-10.8)
--- NOTE | 2024-06-25 06:33 | Obstetrical Progress Note ---
Date of Service <Anil Weathers MD - Last Filed: 06/25/24 07:36> June 25, 2024 Assessment & Plan <Anil Weathers MD - Last Filed: 06/25/24 07:36> (1) care and examination: Plan PPD#1: Stable. Rh+, gbs-, ri, vitals and H&H wnl Continue routine care, continue OOB and ambulation, diet as tolerated Plan for DC today if cleared by peds <Tiarra Watson MD, FACOG - Last Filed: 06/25/24 07:40> (1) care and examination: Subjective <Anil Weathers MD - Last Filed: 06/25/24 07:36> Evangelina is a 29 y/o female who is PPD#1 following at term. Reports mild abd pain/cramping, well managed w ibuprofen Is voiding, tolerating meals, and ambulating Has not felt dizzy or weak Having appropriate lochia Planning for exclusive . Constitutional: no fever, no chills or no sweats Respiratory: no dyspnea Cardiovascular: no chest pain, no palpitations or no calf pain Breast: no breast pain Gastrointestinal: no nausea or no vomiting Genitourinary (female): no dysuria Neurologic: no headache(s) no changes in vision, no headaches Physical Exam <Anil Weathers MD - Last Filed: 06/25/24 07:36> General: Alert, oriented. No acute distress. Cardiac: Regular rate and rhythm, no murmurs, rubs, or gallops. Respiratory: Clear to auscultation bilaterally. No increased work of breathing. Symmetrical chest rise. No respiratory distress. Abdomen: Soft, nontender, nondistended. Bowel sounds present. Uterus: Uterine fundus firm, nontender, palpable 1 cm below the umbilicus. Lower extremities: No lower extremity edema or swelling. No deep calf pain. Results & Data <Anil Weathers MD - Last Filed: 06/25/24 07:36> Vital Signs (Past 12 Hours) Vital Signs Temp Pulse Resp BP Pulse Ox O2 Del Method 06/25/24 03:30 36.6 C 79 18 111/75 98 Room Air 06/24/24 23:56 36.6 C 73 16 112/69 98 Room Air 06/24/24 20:05 36.4 C L 88 18 117/72 97 Room Air Laboratory Results 06/25/24 06:01 Supervising Physician <Tiarra Watson MD, FACOG - Last Filed: 06/25/24 07:40> Co-Signing Physician Notes Resident Physician Supervision Note: I interviewed and examined the patient. Discussed with Dr. Weathers and agree with findings and plan as documented in the note. Any exceptions or clarifications are listed here: [None] Documented By: Tiarra Watson MD, FACOG Resident Activity Tracking <Anil Weathers MD - Last Filed: 06/25/24 07:36> Resident Involvement: Resident Care Provided Care Provided: Adult Hospital Medicine and OB Delivery
[2024-06-25 08:24] VITALS: BP 104/27; PULSE 77; RESP 16; TEMP 98.8
[2024-06-25] MEDS: SERTRALINE HCL 100 MG TABLET PO SCH (08:35)
[2024-06-25] MEDS: PRENATAL VITAMIN 1 TAB PO SCH (08:35)
[2024-06-25] MEDS ORDERED: bisacodyL 5 MG TABEC PO SCH (20:00)
== END 2024-06-25 16:25 | disposition home or self-care (01) | DRG 807 ==
LOC: OPB 07:13 → 4S1 07:16 → 4E2 18:01